=== PATIENT | male | born 1990 | race Caucasian/White ===

== ENCOUNTER 2019-07-02 18:23 | Emergency (ER) | payer MEDICAID, OTHER ==
[~2019-07-02] VITALS: Ht 180.3 cm; Wt 91.6 kg
[2019-07-02 20:09] LABS: Basophils # (auto) 0.1 10 ^3/uL (0-0.2); Basophils % (auto) 0.7 % (0.0-2.0); Eosinophils # (auto) 0.5 10 ^3/uL (0-0.8); Eosinophils % (auto) 7.3 % (0.0-7.0); Hematocrit 43.5 % (41.0-53.0); Hemoglobin 14.8 g/dL (13.5-17.5); Lymphocytes # (auto) 2.6 10 ^3/uL (0.4-5.4); Lymphocytes % (auto) 35.1 % (10.0-50.0); Mean Corpuscular Hemoglobin 30.7 pg (28.0-32.0); Mean Corpuscular Volume 90.3 fL (80.0-100.0); Monocytes # (auto) 0.6 10 ^3/uL (0-1.3); Monocytes % (auto) 8.1 % (0.0-12.0); Neutrophils # (auto) 3.6 10 ^3/uL (1.6-8.6); Neutrophils % (auto) 48.8 % (37.0-80.0); Nucleated Red Blood Cells % 0.1 %; Platelet Count (auto) 241 10^3/uL (140-450); Red Blood Cells 4.82 10^6/uL (4.5-5.90); Red Cell Distribution Width 13.4 % (11.8-14.3); White Blood Cell 7.4 10^3/uL (4.4-10.8)
[2019-07-02 20:41] LABS: Albumin 3.7 g/dL (3.4-5.0); Anion Gap 1 (5-15); Blood Urea Nitrogen 12 mg/dL (7-18); Calcium 8.7 mg/dL (8.5-10.1); Carbon Dioxide 30 mmol/L (21-32); Chloride 110 mmol/L (98-107); Glucose 101 mg/dL (74-106); Magnesium 2.2 mg/dL (1.6-2.6); Potassium 3.9 mmol/L (3.5-5.1); Sodium 141 mmol/L (136-145)
[2019-07-02 20:47] LABS: Alanine Aminotransferase 34 U/L (16-61); Alkaline Phosphatase 47 U/L (45-117); Aspartate Aminotransferase 12 U/L (15-37); Bilirubin, Total 0.3 mg/dL (0.2-1.0); GFR African American 124 mL/min; GFR Non-African American 103 mL/min; Total Protein 7.1 g/dL (6.4-8.2)
[2019-07-02 21:13] VITALS: BP 126/74
== END 2019-07-02 21:27 | disposition home or self-care (01) ==
LOC: ER 18:25
DX: R07.89 Other chest pain (principal); F17.210 Nicotine dependence, cigarettes, uncomplicated
CPT/HCPCS: 36415; 71046; 80053; 83735; 84484; 85025; 93005